=== PATIENT | female | born 1990 | race Hispanic/Latino ===

== ENCOUNTER 2024-10-04 09:07 | Emergency (ER) | payer SELFPAY ==
[2024-10-04 09:08] VITALS: BP 130/81
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
[2024-10-04] MEDS: TYLENOL 1000 MG PO (11:30)
[2024-10-04] MEDS: MOTRIN 600 MG PO (11:30)
== END 2024-10-04 12:40 | disposition home or self-care (01) ==
LOC: EMR 09:07
PROVIDERS: EMERGENCY PHYSICIAN Emergency Medicine
DX: S46.911A Strain of unspecified muscle, fascia and tendon at shoulder and upper arm level, right arm, initial encounter (principal); S63.501A Unspecified sprain of right wrist, initial encounter; T23.112A Burn of first degree of left thumb (nail), initial encounter; T31.0 Burns involving less than 10% of body surface; V49.88XA Car occupant (driver) (passenger) injured in other specified transport accidents, initial encounter
CPT/HCPCS: 99283; 29125; 73030; 73110